=== PATIENT | female | born 1950 | race Caucasian/White ===

== ENCOUNTER 2017-05-07 14:24 | Outpatient (CLI) | payer OTHER | END 2017-05-07 14:25 | disposition home or self-care (01) | LOC: BICMAMMO 14:24 | PROVIDERS: ATTEND Family Medicine | DX: Z12.31 Encounter for screening mammogram for malignant neoplasm of breast (principal); N64.89 Other specified disorders of breast; Z80.3 Family history of malignant neoplasm of breast | CPT/HCPCS: 77063; 77067 ==

== ENCOUNTER 2017-05-16 14:21 | Outpatient (CLI) | payer OTHER | END 2017-05-16 14:22 | disposition home or self-care (01) | LOC: BICMAMMO 14:21 | PROVIDERS: ATTEND Family Medicine | DX: R92.2 Inconclusive mammogram (principal) | CPT/HCPCS: G0279 ==

== ENCOUNTER 2018-02-11 11:57 | Outpatient (CLI) | payer OTHER ==
--- NOTE | 2018-02-11 14:28 | CT ---
CONTRAST ENHANCED CT CHEST: HISTORY: Lung nodule. COMPARISON: Chest radiograph from 12/27/2017. FINDINGS: Contrast enhanced CT chest demonstrates a small calcified granuloma seen at the posterior aspect of t he left upper lobe, seen on axial image #17. This is a benign lesion. Extensive mediastinal calcification is also seen. 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 No definite evidence of mediastinal or hilar lymphadenopathy is seen. No other definite pulmonary parenchymal masses or lesions seen. The visualized portions of the liver and spleen are unremarkable. Incidentally noted 5 mm area of hypodensity seen in the liver, posterior aspect, right lobe. This le rafat is too small to characterize. It may represent a cyst. Follow-up repeat CT or further imaging using pre and post contrast enhanced MRI of the liver may be of use if indicated. IMPRESSION: Extensive mediastinal calcified lymph nodes with left upper lobe lung parenchymal granuloma. POS: [facility]
== END 2018-02-11 11:58 | disposition home or self-care (01) ==
LOC: CT 11:57
PROVIDERS: ATTEND Family Medicine
DX: R91.1 Solitary pulmonary nodule (principal); J84.10 Pulmonary fibrosis, unspecified
CPT/HCPCS: 71260; 82565

== ENCOUNTER 2018-03-10 13:32 | Outpatient (CLI) | payer OTHER ==
--- NOTE | 2018-03-10 17:14 | MRI ---
MR OF THE ABDOMEN WITH AND WITHOUT CONTRAST: 03/10/18 INDICATION: Hepatic lesion. COMPARISON: CT of the thoracic dated 02/12/08. CONTRAST: 13 mL of Multihance. TECHNIQUE: Multiplanar and multisequence MR images were obtained of the abdomen with and without contrast utiliz ing hemangioma protocol. FINDINGS: 5 mm hypodensity seen within the right hepatic dome on the comparison CT examination is demonstrated as a T2 hyperintense and T1 hypointense lesion. The lesion demonstrates no arterial enhancement on th e early phase images but does have progressive central enhancement on subsequent images and is suspic ious for a tiny hemangioma. No additional focal hepatic lesion is evident. The adrenal glands, pancre as and spleen appear within normal limits. No lymphadenopathy is evident. There is a retroaortic left renal vein. No bone marrow signal abnormality is evident. IMPRESSION: 5 mm hypodensity seen within the right hepatic dome on the comparison CT examination demonstrates fin dings most suspicious for a small hemangioma. POS: [facility]
== END 2018-03-10 13:33 | disposition home or self-care (01) ==
LOC: BICMRI 13:32
PROVIDERS: ATTEND Family Medicine
DX: K76.89 Other specified diseases of liver (principal); R93.2 Abnormal findings on diagnostic imaging of liver and biliary tract
CPT/HCPCS: 74183; 82565

== ENCOUNTER 2018-06-12 13:46 | Outpatient (CLI) | payer OTHER ==
--- NOTE | 2018-06-12 15:27 | MMO ---
Bilateral MAMMO Bilat Screen DDI+TREASURE. CLINICAL HISTORY: Patient is 67 years old and is seen for screening. The patient has the following family history of breast cancer: sister, at age 66. The patient has no personal history of cancer. VIEWS: The views performed were: bilateral craniocaudal with tomosynthesis and bilateral mediolateral oblique with tomosynthesis. FILMS COMPARED: The present examination has been compared to prior imaging studies performed at [facility] on 05/07/2017 and 05/16/2017, and at [facility] on 03/31/2014, 04/10/2015 and 03/29/2016. MAMMOGRAM FINDINGS: There are scattered fibroglandular densities. Benign calcifications are noted bilaterally. There are no suspicious masses, suspicious calcifications, or new areas of architectural distortion. IMPRESSION: THERE IS NO MAMMOGRAPHIC EVIDENCE OF MALIGNANCY. A ROUTINE FOLLOW-UP MAMMOGRAM IN 1 YEAR IS RECOMMENDED. THE RESULTS OF THIS EXAM WERE SENT TO THE PATIENT. ACR BI-RADS Category 2 - Benign finding MAMMOGRAPHY NOTE: 1. A negative mammogram report should not delay a biopsy if a dominant of clinically suspicious mass is present. 2. Approximately 10% to 15% of breast cancers are not detected by mammography. 3. Adenosis and dense breasts may obscure an underlying neoplasm.
== END 2018-06-12 13:47 | disposition home or self-care (01) ==
LOC: BICMAMMO 13:46
PROVIDERS: ATTEND Family Medicine
DX: Z12.31 Encounter for screening mammogram for malignant neoplasm of breast (principal); Z80.3 Family history of malignant neoplasm of breast
CPT/HCPCS: 77063; 77067

== ENCOUNTER 2018-06-30 14:05 | Outpatient (CLI) | payer OTHER ==
--- NOTE | 2018-06-30 15:16 | BD ---
DEXA BONE DENSITY STUDY: Date: 06/30/18 HISTORY: Postmenopausal. FINDINGS: Lumbar Spine: BMD (g/cm2) L1 0.930 T-Score: -0.5 L2 1.008 T-Score: -0.2 L3 1.053 T-Score: -0.3 L4 1.025 T-Score: -0.3 Total 1.007 T-Score: -0.4 Left Femoral Neck: 0.744 T-Score: -0.9 Total Femur: 1.068 T-Score: +1.0 IMPRESSION: Normal bone mineral density of the left femoral neck and lumbar spine. POS: [facility]
== END 2018-06-30 14:06 | disposition home or self-care (01) ==
LOC: BICMAMMO 14:05
PROVIDERS: ATTEND Family Medicine
DX: M81.0 Age-related osteoporosis without current pathological fracture (principal)
CPT/HCPCS: 77080

== ENCOUNTER 2019-07-23 13:40 | Outpatient (CLI) | payer MEDICARE ==
--- NOTE | 2019-07-23 14:40 | MMO ---
Right Breast MAMMO Unilat Diag DDI RT+TREASURE. CLINICAL HISTORY: Patient is 68 years old and is seen for additional evaluation requested from prior study. The patient has the following family history of breast cancer: sister, at age 66. The patient has no personal history of cancer. VIEWS: The views performed were: right craniocaudal spot compression with tomosynthesis; right mediolateral oblique spot compression with tomosynthesis; and right mediolateral with tomosynthesis. FILMS COMPARED: The present examination has been compared to prior imaging studies performed at [facility] on 05/16/2017, 06/12/2018 and 07/23/2019, and at [facility] on 07/13/2019. This study has been interpreted with the assistance of computer-aided detection. MAMMOGRAM FINDINGS: There are scattered fibroglandular densities. There is a lobular mass measuring 9 millimeters seen in the upper-inner region of the right breast. Ultrasound showed cluster of cysts. There are no suspicious masses, suspicious calcifications, or new areas of architectural distortion. IMPRESSION: THERE IS NO MAMMOGRAPHIC EVIDENCE OF MALIGNANCY. A ROUTINE FOLLOW-UP MAMMOGRAM IN 1 YEAR IS RECOMMENDED. THE RESULTS OF THIS EXAM WERE SENT TO THE PATIENT. ACR BI-RADS Category 2 - Benign finding MAMMOGRAPHY NOTE: 1. A negative mammogram report should not delay a biopsy if a dominant of clinically suspicious mass is present. 2. Approximately 10% to 15% of breast cancers are not detected by mammography. 3. Adenosis and dense breasts may obscure an underlying neoplasm. Reported by: DAVID DUQUE MD Electonically Signed: [id number]
--- NOTE | 2019-07-23 16:27 | ULT ---
RIGHT BREAST ULTRASOUND: History: Asymmetry seen at approximately the 2 o'clock position right breast on recent mammogram. FINDINGS: Real-time imaging of the areas of concern shows a small cluster of cysts in this area. No concerning features. IMPRESSION: BIRADS category 2 - benign findings.
== END 2019-07-23 13:41 | disposition home or self-care (01) ==
LOC: BICMAMMO 13:40
PROVIDERS: ATTEND Family Medicine
DX: R92.8 Other abnormal and inconclusive findings on diagnostic imaging of breast (principal)
CPT/HCPCS: 76642; 77065; G0279

== ENCOUNTER 2020-08-30 16:30 | Outpatient (CLI) | payer MEDICARE | END 2020-08-30 16:31 | disposition home or self-care (01) | LOC: LABBT 16:30 | PROVIDERS: ATTEND Surgery | DX: Z01.812 Encounter for preprocedural laboratory examination (principal); N63.20 Unspecified lump in the left breast, unspecified quadrant | CPT/HCPCS: 80048; 85025 ==

== ENCOUNTER 2020-08-31 07:05 | Day surgery (SDC) | payer MEDICARE ==
[2020-08-30 15:23] VITALS: BMI 24.2
[2020-08-31] MEDS ORDERED: Lidocaine 1% w/Epinephrine 1:100K 20 ML VIAL ONE (08:42)
[2020-08-31] MEDS ORDERED: Bupivacaine 0.25% HCL 30 ML VIAL ONE (08:42)
== END 2020-08-31 09:23 | disposition home or self-care (01) ==
LOC: SDC 07:05
PROVIDERS: ATTEND Surgery
DX: N63.20 Unspecified lump in the left breast, unspecified quadrant (principal); E78.5 Hyperlipidemia, unspecified; Z53.8 Procedure and treatment not carried out for other reasons; Z79.82 Long term (current) use of aspirin; Z79.899 Other long term (current) drug therapy; Z88.0 Allergy status to penicillin
CPT/HCPCS: S0020